=== PATIENT | male | born 1980 | race African-American/Black ===

== ENCOUNTER 2019-12-06 17:39 | Inpatient (IN) | payer SELFPAY ==
[~2019-12-06] VITALS: Ht 175.3 cm; Wt 87.2 kg
[2019-12-06] MEDS ORDERED: IV NORMAL SALINE 1000ML BAG 1,000 ML IV ONE ×4 (18:00→20:00)
[2019-12-06] MEDS ORDERED: ZIPRASIDONE IM 20 MG VIAL. IM ONE (18:00)
[2019-12-06] MEDS ORDERED: MIDAZOLAM HCL/PF 2 MG/2 ML VIAL. ONE (18:05)
[2019-12-06 18:08] LABS: BASO # 0.1 x10^3/uL (0.0-0.2); BASO % 1 % (0-3); EOS # 0.1 x10^3/uL (0.0-0.7); EOS % 1 % (0-3); HEMATOCRIT 43.9 % (39.0-53.0); HEMOGLOBIN 14.3 g/dL (13.0-17.5); LYMPH # 5.1 x10^3/uL (1.0-4.8); LYMPH % 46 % (24-48); MEAN CORPUSCULAR HEMOGLOBIN 29 pg (25-35); MEAN CORPUSCULAR HGB CONC 33 g/dL (31-37); MEAN CORPUSCULAR VOLUME 90 fL (79-100); MONO # 0.8 x10^3/uL (0.0-1.1); MONO % 8 % (0-9); NEUT % 45 % (31-73); PLATELET COUNT 402 x10^3/uL (140-400); RED BLOOD COUNT 4.89 x10^6/uL (4.30-5.70); RED CELL DISTRIBUTION WIDTH 13.2 % (11.5-14.5); WHITE BLOOD COUNT 11.2 x10^3/uL (4.0-11.0)
[2019-12-06 18:17] LABS: PROTHROMBIN TIME PATIENT 15.9 SEC (11.7-14.0)
--- NOTE | 2019-12-06 18:27 | RAD ---
Exam: CT head INDICATION: Altered mental status TECHNIQUE: Sequential axial images through the head were obtained without the administration of IV contrast. Comparisons: None FINDINGS: No focal parenchymal lesion or hemorrhage is identified. There is no midline shift or sulcal effacement. No acute vascular territory infarction is identified. Richards-white distinction is preserved. The ventricular system is within normal limits without compression hydrocephalus. The basal cisterns are well maintained. The visualized portions of the paranasal sinuses and mastoid air cells are well-pneumatized. No acute fractures. IMPRESSION: No acute intracranial abnormality. Exposure: One or more of the following in the visualized dose reduction techniques were utilized for this examination: 1. Automated exposure control 2. Adjustment of the MA and/or KV according to patient size Use of iterative of reconstructive technique Electronically signed by: Carolina Ding MD (12/06/2019 6:24 PM) [id number]
[2019-12-06] MEDS ORDERED: MIDAZOLAM HCL/PF 5 MG/5 ML VIAL. NS ONE ×2 (18:30→20:15)
[2019-12-06] MEDS ORDERED: ACETAMINOPHEN 650 MG SUPP.RECT. PR ONE (18:30)
[2019-12-06] MEDS ORDERED: KETOROLAC 30 MG/ML VIAL. IVP ONE (18:30)
--- NOTE | 2019-12-06 18:35 | RAD ---
Study: CR CHEST AP ONLY Indication: Altered mental status. Comparison: None. Findings: No lobar consolidation, pleural effusion or pneumothorax. The cardiomediastinal silhouette appears mildly prominent size but this is favored due to AP technique and low lung volumes. Degenerative changes of both AC joints. Grossly intact ribs. No free air seen under the diaphragm. Impression: No acute radiographic abnormality of the chest. Electronically signed by: ADELE HAN MD (12/06/2019 6:33 PM) [id number]
[2019-12-06 18:36] LABS: ACETAMIN < 2 mcg/ml (10-30); SALIC 4.1 mg/dL (2.8-20.0)
[2019-12-06 18:37] LABS: ETHANOL < 10 mg/dL (0-10)
[2019-12-06] MEDS ORDERED: MIDAZOLAM HCL/PF 2 MG/2 ML VIAL. IV ONE ×2 (19:00→20:15)
--- NOTE | 2019-12-06 19:17 | EKG ---
[facility] [address] [place] [address] Test Date: 2019-12-06 Test Time: 17:59:06 Pat Name: LUDIN RIVERA Department: Room: Gender: M Business Intelligence Manager: : 1980 Requested By: DEANNE DEXTER Order Number: [id number] Reading MD: Measurements Intervals [place] Rate: 135 P: UT: QRS: 91 QRSD: 70 T: 48 QT: 326 QTc: 494 Interpretive Statements SUPRAVENTRICULAR TACHYCARDIA RIGHTWARD AXIS QRS(T) CONTOUR ABNORMALITY CONSISTENT WITH ANTEROSEPTAL INFARCT AGE UNDETERMINED ABNORMAL ECG RI6.02 No previous ECG available for comparison
--- NOTE | 2019-12-06 19:48 | PHYS DOC ---
Past Medical History Past Medical History: No Pertinent History Past Surgical History: No Surgical History Smoking Status: Unknown if ever smoked Alcohol Use: None Social History Narrative: unknown General Adult EDM: Chief Complaint: DRUG ABUSE HPI: HPI: 39-year-old male no past medical history presents the ED brought in by EMS in police custody, was found wandering and acting erratic in the streets. Patient with incomprehensible speech and acutely agitated on arrival, was sedated for his medical evaluation and safety. EMS gave 250 mg of ketamine and 5 mg of Haldol. Patient required Geodon and Ativan on arrival. ROS: Unobtainable due to ams Heart Score: Risk Factors: Risk Factors: DM, Current or recent (<one month) smoker, HTN, HLP, family history of CAD, obesity. Risk Scores: Score 0 - 3: 2.5% MACE over next 6 weeks - Discharge Home Score 4 - 6: 20.3% MACE over next 6 weeks - Admit for Clinical Observation Score 7 - 10: 72.7% MACE over next 6 weeks - Early Invasive Strategies Current Medications: Current Medications Medications (Trade) Dose Ordered Sig/Jose E Start Time Stop Time Status Last Admin Dose Admin Acetaminophen (Tylenol Supp) 650 mg 1X ONCE 12/06/19 18:30 12/06/19 18:34 DC 12/06/19 18:32 650 MG Ketorolac Tromethamine (Toradol 30mg Vial) 30 mg 1X ONCE 12/06/19 18:30 12/06/19 18:28 DC Lorazepam (Ativan Inj) 2 mg 1X ONCE 12/06/19 19:00 12/06/19 19:01 DC 12/06/19 18:55 2 MG Midazolam HCl (Versed) 2 mg 1X ONCE 12/06/19 19:00 12/06/19 19:05 DC 12/06/19 18:59 2 MG Sodium Chloride 1,000 ml @ 1,000 mls/hr 1X ONCE 12/06/19 18:30 12/06/19 19:29 DC 12/06/19 18:29 1,000 MLS/HR Ziprasidone (Geodon Im) 20 mg 1X ONCE 12/06/19 18:00 12/06/19 18:01 DC 12/06/19 18:47 20 MG Allergies: Allergies: Allergies Coded Allergies Type Severity Reaction Last Updated Verified Unable to Assess 12/06/19 No Physical Exam: PE: Constitutional: Incomprehensible speech, agitated, unable to verbally de-es calate, diaphoretic HENT: Normocephalic, atraumatic, bilateral external ears normal, oropharynx moist, no oral exudates, nose normal. [] Eyes: PERRLA-miotic 1mm, EOMI, conjunctiva normal, no discharge. [] Neck: Normal range of motion, no tenderness, supple, no stridor. [] Cardiovascular:Heart rate regular rhythm, no murmur [] Lungs & Thorax: Bilateral breath sounds clear to auscultation [] Abdomen: Bowel sounds normal, soft, no tenderness, no masses, no pulsatile mas ses. [] Skin: Warm, dry, no erythema, no rash. [] Back: No tenderness, no CVA tenderness. [] Extremities: No tenderness, no cyanosis, no clubbing, ROM intact, no edema, no clonus, no leadpipe rigidity Neurologic: Alert and oriented X 3, normal motor function, normal sensory function, no focal deficits noted. [] Psychologic: Affect normal, judgement normal, mood normal. [] Current Patient Data: Labs: Laboratory Tests Test 12/06/19 17:58 White Blood Count 11.2 x10^3/uL (4.0-11.0) H Red Blood Count 4.89 x10^6/uL (4.30-5.70) Hemoglobin 14.3 g/dL (13.0-17.5) Hematocrit 43.9 % (39.0-53.0) Mean Corpuscular Volume 90 fL (79-100) Mean Corpuscular Hemoglobin 29 pg (25-35) Mean Corpuscular Hemoglobin Concent 33 g/dL (31-37) Red Cell Distribution Width 13.2 % (11.5-14.5) Platelet Count 402 x10^3/uL (140-400) H Neutrophils (%) (Auto) 45 % (31-73) Lymphocytes (%) (Auto) 46 % (24-48) Monocytes (%) (Auto) 8 % (0-9) Eosinophils (%) (Auto) 1 % (0-3) Basophils (%) (Auto) 1 % (0-3) Neutrophils # (Auto) 5.0 x10^3/uL (1.8-7.7) Lymphocytes # (Auto) 5.1 x10^3/uL (1.0-4.8) H Monocytes # (Auto) 0.8 x10^3/uL (0.0-1.1) Eosinophils # (Auto) 0.1 x10^3/uL (0.0-0.7) Basophils # (Auto) 0.1 x10^3/uL (0.0-0.2) Prothrombin Time 15.9 SEC (11.7-14.0) H Prothrombin Time INR 1.3 (0.8-1.1) H Activated Partial Thromboplast Time 26 SEC (24-38) Lactic Acid Level 21.5 mmol/L (0.4-2.0) *H Magnesium Level 2.6 mg/dL (1.8-2.4) H Ammonia 252 mcmol/L (11-34) H Creatine Kinase 1733 U/L (39-308) H Creatine Kinase MB (Mass) 9.7 ng/mL (0.0-3.6) H Creatine Kinase MB Relative Index 0.6 % (0-4) Troponin I Quantitative < 0.017 ng/mL (0.000-0.055) Salicylates Level 4.1 mg/dL (2.8-20.0) Salicylate Last Dose Date Unknown Salicylate Last Dose Time Unknown Acetaminophen Level < 2 mcg/ml (10-30) L Acetaminophen Last Dose Date Unknown Acetaminophen Last Dose Time Unknown Ethyl Alcohol Level < 10 mg/dL (0-10) Laboratory Tests 12/06/19 17:58 Vital Signs: Vital Signs Date Time Temp Pulse Resp B/P (MAP) Pulse Ox O2 Delivery O2 Flow Rate FiO2 12/06/19 18:50 124 36 101/69 (80) 93 Room Air 12/06/19 17:39 102.0 102.0 EKG: EKG: Concern for sinus tachycardia, possible multifocal atrial tachycardia at 135 bpm, no axis deviation, QTC 494, no T wave inversions, no ST elevations or ST depressions Radiology/Procedures: Radiology/Procedures: IMAGING REPORT Signed PATIENT: LUDIN RIVERA ACCOUNT: [id number] : 1980 LOCATION: ER AGE: 39 SEX: M EXAM STATUS: REG ER ORD. PHYSICIAN: DEANNE DEXTER DO REASON: altered mental status PROCEDURE: CT HEAD WO CONTRAST Exam: CT head INDICATION: Altered mental status TECHNIQUE: Sequential axial images through the head were obtained without the administration of IV contrast. Comparisons: None FINDINGS: No focal parenchymal lesion or hemorrhage is identified. There is no midline shift or sulcal effacement. No acute vascular territory infarction is identified. Richards-white distinction is preserved. The ventricular system is within normal limits without compression hydrocephalus. The basal cisterns are well maintained. The visualized portions of the paranasal sinuses and mastoid air cells are well-pneumatized. No acute fractures. IMPRESSION: No acute intracranial abnormality. Exposure: One or more of the following in the visualized dose reduction techniques were utilized for this examination: 1. Automated exposure control 2. Adjustment of the MA and/or KV according to patient size Use of iterative of reconstructive technique Electronically signed by: Carolina Knight MD (12/06/2019 6:24 PM) [id number] DICTATED and SIGNED BY: CAROLINA KNIGHT MD DATE: 12/06/191823 IMAGING REPORT Signed PATIENT: LUDIN RIVERA ACCOUNT: [id number] : 1980 LOCATION: ER AGE: 39 SEX: M EXAM STATUS: REG ER ORD. PHYSICIAN: DEANNE DEXTER DO REASON: altered mental status PROCEDURE: CHEST AP ONLY Study: CR CHEST AP ONLY Indication: Altered mental status. Comparison: None. Findings: No lobar consolidation, pleural effusion or pneumothorax. The cardiomediastinal silhouette appears mildly prominent size but this is favored due to AP technique and low lung volumes. Degenerative changes of both AC joints. Grossly intact ribs. No free air seen under the diaphragm. Impression: No acute radiographic abnormality of the chest. Electronically signed by: ADELE HAN MD (12/06/2019 6:33 PM) [id number] DICTATED and SIGNED BY: ADELE HAN MD DATE: 12/06/19 183 Course & Med Decision Making: Course & Med Decision Making Pertinent Labs and Imaging studies reviewed. (See chart for details) Concern for acute agitation/delirium secondary to polysubstance abuse, most notable is PCP which fits with patient's ER presentation. Required multiple sedations for his safety and evaluation. Labs showed lactic acidosis, rhabdomyolysis and acute kidney injury. Lactic acidosis resolved. Kidney injury improved and CK increased. after patient was given 3 L bolus and started on maintenance fluids. On re-evaluation pt admits to PCP, is A&Ox3 w/[facility]. Denies any suicidal thoughts, plan or homicidal ideations or plan. Was educated on concern for rhabdomyolysis with CK increasing. Agrees with plan for admission, IV fluids and repeat labs. Will admit for further medical management. Patient stable at time of admission and agrees with this plan. I have spoken with the patient and/or caregivers. I have explained the patient's condition, diagnosis and treatment plan based on the information avail able to me at this time. I have answered the patient's and/or caregivers questions and answered any concerns. The patient and/or caregivers have as good an understanding of the patient's diagnosis, condition and treatment plan as can be expected at this point. The patient has been stabilized within the capability of the emergency department. The patient will be transported for further care and management or will be moved to an observation or inpatient service. I have communicated with the staff or medical practitioner taking over this patient's care. Geoffrey Disclaimer: Dragmono Disclaimer: This electronic medical record was generated, in whole or in part, using a voice recognition dictation system. Departure Departure Impression: Primary Impression: Agitation requiring sedation protocol Additional Impressions: Rhabdomyolysis Elevated lactic acid level PCP (phencyclidine) abuse Polysubstance abuse Renal insufficiency Disposition: ADMITTED INPATIENT Admitting Physician: TREVOR (Dr. Hubbard) Condition: STABLE Referrals: NO PCP (PCP) Patient Instructions: Acute Kidney Injury, Polysubstance Abuse, Rhabdomyolysis, Sedation, Moderate, Adult Additional Instructions: Sergei Tony MD Family Medicine Address: [address] [place] [id number] Justicifation of Admission Dx: Justifications for Admission: Justification of Admission Dx: Yes Comments: rhabdomyolysis MARIA G LI DO Dec 06, 2019 19:48
[2019-12-06] MEDS ORDERED: HALOPERIDOL LACTATE 5 MG/ML VIAL. ONE (19:54)
[2019-12-06 20:05] LABS: BILIRUBIN,URINE NEGATIVE (NEG); CLARITY,URINE CLEAR; COLOR,URINE YELLOW; NITRITE,URINE NEGATIVE (NEG); PH,URINE 6.5 (<5.0-8.0); PROTEIN,URINE 100 mg/dL (NEG-TRACE)
[2019-12-06 20:11] LABS: HYALINE CASTS, URINE FEW /HPF
[2019-12-06 20:12] LABS: AMORPHOUS SEDIMENT,UR PRESENT /HPF; BACTERIA,URINE 0 /HPF (0-FEW)
[2019-12-06 20:13] LABS: BARBITURATES NEG (NEG); BENZODIAZEPINES POS (NEG); CANNABINOIDS POS (NEG); COCAINE NEG (NEG); METHADONE NEG (NEG); OPIATES NEG (NEG); PHENCYCLIDINE POS (NEG)
[2019-12-06 20:15] LABS: AMPHETAMINE/METHAMPHETAMINE POS (NEG)
[2019-12-06] MEDS ORDERED: HALOPERIDOL LACTATE 5 MG/ML VIAL. IVP ONE (20:15)
[2019-12-06 20:28] LABS: ALBUMIN 4.5 g/dL (3.4-5.0); ALBUMIN/GLOBULIN RATIO 1.2 (1.0-1.7); CALCIUM 9.9 mg/dL (8.5-10.1); CREATININE 1.9 mg/dL (0.7-1.3); GFR 47.7; POTASSIUM 3.9 mmol/L (3.5-5.1); TOTAL BILIRUBIN 0.8 mg/dL (0.2-1.0); TOTAL PROTEIN 8.3 g/dL (6.4-8.2)
[2019-12-06] MEDS ORDERED: KETAMINE HCL IN NACL, ISO-OSM 50 MG/5 ML SYRINGE ONE (20:50)
[2019-12-06] MEDS ORDERED: KETAMINE HCL IN NACL, ISO-OSM 50 MG/5 ML SYRINGE IV ONE (21:00)
[2019-12-06] MEDS ORDERED: DIPH,PERTUSS(ACELL),TET VAC/PF 0.5 ML SYRINGE. VAX IM ONE (21:30)
[2019-12-07 00:54] LABS: CALCIUM 7.5 mg/dL (8.5-10.1); CREATININE 1.3 mg/dL (0.7-1.3); POTASSIUM 3.7 mmol/L (3.5-5.1)
[2019-12-07] MEDS ORDERED: IV NORMAL SALINE 1000ML BAG 1,000 ML IV SCH (02:30)
[2019-12-07 03:41] VITALS: BP 119/77
--- NOTE | 2019-12-07 04:05 | NUR ---
The patient, LUDIN RIVERA, 39 y/o, M admitted by JAYESH LANDEROS MD, was given written information regarding hospital policies, unit procedures and contact persons. Valuables were checked and placed in bedside table. No needs currently. Pt. just wants to rest. Will monitor.
[2019-12-07] MEDS ORDERED: [UNRECOGNIZED DRUG - REMARK] (04:38)
--- NOTE | 2019-12-07 07:46 | NUR ---
pt had been walking on unit with IV pole. was instructed not to leave unit. when RN came out of another pt room, Mr. Messer was no longer on unit. IV pole found in front of litigation legal secretary's desk. pt had unhooked from his arm. Security called and staff was informed that pt had told screener at south entrance he could go outside to get some fresh air. this was not accurate. security called floor to get pt address as law enforcement was to be called to pick patient up at home.
--- NOTE | 2019-12-07 07:58 | PDOC1 ---
History and Physical Date of Admission Date of Admission DATE: 12/07/19 TIME: 07:46 Identification/Chief Complaint Chief Complaint Drug abuse Source Source: Chart review History of Present Illness History of Present Illness Patient is a 39-year-old male with no significant past medical history who presents to the ER via EMS in police custody after being found acting erratically. Per chart review, patient was acting agitated and required multiple rounds of sedation safety and examination purposes. Per ER personnel, patient's urine drug toxicology showed evidence of polysubstance abuse. Serum chemistry showed rhabdomyolysis and lactic acidosis. Further history and review of systems cannot be obtained as patient left AMA prior to my evaluation. Past Medical History Past Medical History Unable to obtain due to uncooperative patient Past Surgical History Past Surgical History Unable to obtain due to uncooperative patient Family History Family History Unable to obtain due to uncooperative patient Current Problem List Problem List Problems Medical Problems: (1) Agitation requiring sedation protocol Status: Acute (2) Elevated lactic acid level Status: Acute (3) PCP (phencyclidine) abuse Status: Acute (4) Polysubstance abuse Status: Acute (5) Renal insufficiency Status: Acute (6) Rhabdomyolysis Status: Acute Current Medications Current Medications Current Medications Ziprasidone (Geodon Im) 20 mg 1X ONCE IM Last administered on 12/06/19at 18:47; Start 12/06/19 at 18:00; Stop 12/06/19 at 18:01; Status DC Lorazepam (Ativan Inj) 2 mg 1X ONCE IVP ; Start 12/06/19 at 18:00; Stop 12/06/19 at 18:01; Status DC Sodium Chloride 1,000 ml @ 1,000 mls/hr 1X ONCE IV Last administered on 12/06/19at 18:28; Start 12/06/19 at 18:00; Stop 12/06/19 at 18:59; Status DC Midazolam HCl (Versed) 2 mg STK-MED ONCE .ROUTE ; Start 12/06/19 at 18:05; Stop 12/06/19 at 18:06; Status DC Midazolam HCl (Versed) 2 mg 1X ONCE NS ; Start 12/06/19 at 18:30; Stop 12/06/19 at 18:59; Status DC Ketorolac Tromethamine (Toradol 30mg Vial) 30 mg 1X ONCE IVP ; Start 12/06/19 at 18:30; Stop 12/06/19 at 18:28; Status DC Sodium Chloride 1,000 ml @ 1,000 mls/hr 1X ONCE IV Last administered on 12/06/19at 18:29; Start 12/06/19 at 18:30; Stop 12/06/19 at 19:29; Status DC Acetaminophen (Tylenol Supp) [address] Last administered on 12/06/19at 18:32; Start 12/06/19 at 18:30; Stop 12/06/19 at 18:34; Status DC Lorazepam (Ativan Inj) 2 mg 1X ONCE IM Last administered on 12/06/19at 18:55; Start 12/06/19 at 19:00; Stop 12/06/19 at 19:01; Status DC Midazolam HCl (Versed) 2 mg 1X ONCE IV Last administered on 12/06/19at 18:59; Start 12/06/19 at 19:00; Stop 12/06/19 at 19:05; Status DC Sodium Chloride 1,000 ml @ 1,000 mls/hr 1X ONCE IV Last administered on 12/06/19at 20:00; Start 12/06/19 at 20:00; Stop 12/06/19 at 20:59; Status DC Sodium Chloride 1,000 ml @ 125 mls/hr 1X ONCE IV Last administered on 12/06/19at 20:43; Start 12/06/19 at 20:00; Stop 12/07/19 at 03:59; Status DC Haloperidol Lactate (Haldol Inj) 5 mg STK-MED ONCE .ROUTE ; Start 12/06/19 at 19:54; Stop 12/06/19 at 19:54; Status DC Haloperidol Lactate (Haldol Inj) 5 mg 1X ONCE IVP Last administered on 12/06/19at 20:05; Start 12/06/19 at 20:15; Stop 12/06/19 at 20:16; Status DC Midazolam HCl (Versed) 4 mg 1X ONCE NS ; Start 12/06/19 at 20:15; Stop 12/06/19 at 20:16; Status Cancel Midazolam HCl (Versed) 4 mg 1X ONCE IV Last administered on 12/06/19at 20:09; Start 12/06/19 at 20:15; Stop 12/06/19 at 20:16; Status DC Ketamine HCl (Ketamine) 90 mg 1X ONCE IV ; Start 12/06/19 at 21:00; Stop 12/06/19 at 21:01; Status DC Ketamine HCl (Ketamine) 50 mg STK-MED ONCE .ROUTE ; Start 12/06/19 at 20:50; Stop 12/06/19 at 20:50; Status DC Diphtheria/ Tetanus/Acell Pertussis (ADACEL TDap SYRINGE) 0.5 ml ONCE ONCE VAX IM Last administered on 12/07/19at 01:23; Start 12/06/19 at 21:30; Stop 12/06/19 at 21:31; Status DC Sodium Chloride 1,000 ml @ 100 mls/hr Q10H IV Last administered on 12/07/19at 04:15; Start 12/07/19 at 02:30; Stop 12/08/19 at 02:29 Active Scripts Active Reported [{no home meds}] Allergies Allergies: Coded Allergies: Sulfa (Sulfonamide Antibiotics) (Verified Allergy, Intermediate, 12/07/19) ROS Review of System Unable to obtain due to uncooperative patient Physical Exam Physical Exam Unable to obtain due to uncooperative patient Vitals Vitals Vital Signs Date Time Temp Pulse Resp B/P (MAP) Pulse Ox O2 Delivery O2 Flow Rate FiO2 12/07/19 04:30 Room Air 12/07/19 03:41 84 16 119/77 (91) 99 12/07/19 01:31 98.1 98.1 Labs Labs Laboratory Tests Test 12/06/19 17:41 12/06/19 17:58 12/06/19 19:56 12/06/19 21:40 Sodium Level 141 mmol/L (136-145) Potassium Level 3.9 mmol/L (3.5-5.1) Chloride Level 96 mmol/L (98-107) Carbon Dioxide Level 7 mmol/L (21-32) Anion Gap 38 (6-14) Blood Urea Nitrogen 11 mg/dL (8-26) Creatinine 1.9 mg/dL (0.7-1.3) Estimated GFR (Cockcroft-Gault) 47.7 BUN/Creatinine Ratio 6 (6-20) Glucose Level 228 mg/dL (70-99) Calcium Level 9.9 mg/dL (8.5-10.1) Total Bilirubin 0.8 mg/dL (0.2-1.0) Aspartate Amino Transf (AST/SGOT) 38 U/L (15-37) Alanine Aminotransferase (ALT/SGPT) 44 U/L (16-63) Alkaline Phosphatase 84 U/L (46-116) Total Protein 8.3 g/dL (6.4-8.2) Albumin 4.5 g/dL (3.4-5.0) Albumin/Globulin Ratio 1.2 (1.0-1.7) White Blood Count 11.2 x10^3/uL (4.0-11.0) Red Blood Count 4.89 x10^6/uL (4.30-5.70) Hemoglobin 14.3 g/dL (13.0-17.5) Hematocrit 43.9 % (39.0-53.0) Mean Corpuscular Volume 90 fL (79-100) Mean Corpuscular Hemoglobin 29 pg (25-35) Mean Corpuscular Hemoglobin Concent 33 g/dL (31-37) Red Cell Distribution Width 13.2 % (11.5-14.5) Platelet Count 402 x10^3/uL (140-400) Neutrophils (%) (Auto) 45 % (31-73) Lymphocytes (%) (Auto) 46 % (24-48) Monocytes (%) (Auto) 8 % (0-9) Eosinophils (%) (Auto) 1 % (0-3) Basophils (%) (Auto) 1 % (0-3) Neutrophils # (Auto) 5.0 x10^3/uL (1.8-7.7) Lymphocytes # (Auto) 5.1 x10^3/uL (1.0-4.8) Monocytes # (Auto) 0.8 x10^3/uL (0.0-1.1) Eosinophils # (Auto) 0.1 x10^3/uL (0.0-0.7) Basophils # (Auto) 0.1 x10^3/uL (0.0-0.2) Prothrombin Time 15.9 SEC (11.7-14.0) Prothromb Time International Ratio 1.3 (0.8-1.1) Activated Partial Thromboplast Time 26 SEC (24-38) Lactic Acid Level 21.5 mmol/L (0.4-2.0) 0.9 mmol/L (0.4-2.0) Magnesium Level 2.6 mg/dL (1.8-2.4) Ammonia 252 mcmol/L (11-34) Creatine Kinase 1733 U/L (39-308) Creatine Kinase MB (Mass) 9.7 ng/mL (0.0-3.6) Creatine Kinase MB Relative Index 0.6 % (0-4) Troponin I Quantitative < 0.017 ng/mL (0.000-0.055) Salicylates Level 4.1 mg/dL (2.8-20.0) Salicylate Last Dose Date Unknown Salicylate Last Dose Time Unknown Acetaminophen Level < 2 mcg/ml (10-30) Acetaminophen Last Dose Date Unknown Acetaminophen Last Dose Time Unknown Ethyl Alcohol Level < 10 mg/dL (0-10) Urine Collection Type Unknown Urine Color Yellow Urine Clarity Clear Urine pH 6.5 (<5.0-8.0) Urine Specific [place] 1.015 (1.000-1.030) Urine Protein 100 mg/dL (NEG-TRACE) Urine Glucose (UA) Negative mg/dL (NEG) Urine Ketones (Stick) 15 mg/dL (NEG) Urine Blood Negative (NEG) Urine Nitrite Negative (NEG) Urine Bilirubin Negative (NEG) Urine Urobilinogen Dipstick 1.0 mg/dL (0.2 mg/dL) Urine Leukocyte Esterase Negative (NEG) Urine RBC 6-10 /HPF (0-2) Urine WBC 1-4 /HPF (0-4) Urine Transitional Epithelial Cells Few /LPF Urine Amorphous Sediment Present /HPF Urine Bacteria 0 /HPF (0-FEW) Urine Hyaline Casts Few /HPF Urine Mucus Mod /LPF Urine Opiates Screen Neg (NEG) Urine Methadone Screen Neg (NEG) Urine Barbiturates Neg (NEG) Urine Phencyclidine Screen Pos (NEG) Urine Amphetamine/Methamphetamine Pos (NEG) Urine Benzodiazepines Screen Pos (NEG) Urine Cocaine Screen Neg (NEG) Urine Cannabinoids Screen Pos (NEG) Urine Ethyl Alcohol Neg (NEG) Test 12/07/19 00:35 Sodium Level 140 mmol/L (136-145) Potassium Level 3.7 mmol/L (3.5-5.1) Chloride Level 107 mmol/L (98-107) Carbon Dioxide Level 28 mmol/L (21-32) Anion Gap 5 (6-14) Blood Urea Nitrogen 10 mg/dL (8-26) Creatinine 1.3 mg/dL (0.7-1.3) Estimated GFR (Cockcroft-Gault) 74.0 Glucose Level 78 mg/dL (70-99) Calcium Level 7.5 mg/dL (8.5-10.1) Creatine Kinase 4983 U/L (39-308) Laboratory Tests Test 12/06/19 17:41 12/06/19 17:58 12/06/19 19:56 12/06/19 21:40 Sodium Level 141 mmol/L (136-145) Potassium Level 3.9 mmol/L (3.5-5.1) Chloride Level 96 mmol/L (98-107) Carbon Dioxide Level 7 mmol/L (21-32) Anion Gap 38 (6-14) Blood Urea Nitrogen 11 mg/dL (8-26) Creatinine 1.9 mg/dL (0.7-1.3) Estimated GFR (Cockcroft-Gault) 47.7 BUN/Creatinine Ratio 6 (6-20) Glucose Level 228 mg/dL (70-99) Calcium Level 9.9 mg/dL (8.5-10.1) Total Bilirubin 0.8 mg/dL (0.2-1.0) Aspartate Amino Transf (AST/SGOT) 38 U/L (15-37) Alanine Aminotransferase (ALT/SGPT) 44 U/L (16-63) Alkaline Phosphatase 84 U/L (46-116) Total Protein 8.3 g/dL (6.4-8.2) Albumin 4.5 g/dL (3.4-5.0) Albumin/Globulin Ratio 1.2 (1.0-1.7) White Blood Count 11.2 x10^3/uL (4.0-11.0) Red Blood Count 4.89 x10^6/uL (4.30-5.70) Hemoglobin 14.3 g/dL (13.0-17.5) Hematocrit 43.9 % (39.0-53.0) Mean Corpuscular Volume 90 fL (79-100) Mean Corpuscular Hemoglobin 29 pg (25-35) Mean Corpuscular Hemoglobin Concent 33 g/dL (31-37) Red Cell Distribution Width 13.2 % (11.5-14.5) Platelet Count 402 x10^3/uL (140-400) Neutrophils (%) (Auto) 45 % (31-73) Lymphocytes (%) (Auto) 46 % (24-48) Monocytes (%) (Auto) 8 % (0-9) Eosinophils (%) (Auto) 1 % (0-3) Basophils (%) (Auto) 1 % (0-3) Neutrophils # (Auto) 5.0 x10^3/uL (1.8-7.7) Lymphocytes # (Auto) 5.1 x10^3/uL (1.0-4.8) Monocytes # (Auto) 0.8 x10^3/uL (0.0-1.1) Eosinophils # (Auto) 0.1 x10^3/uL (0.0-0.7) Basophils # (Auto) 0.1 x10^3/uL (0.0-0.2) Prothrombin Time 15.9 SEC (11.7-14.0) Prothromb Time International Ratio 1.3 (0.8-1.1) Activated Partial Thromboplast Time 26 SEC (24-38) Lactic Acid Level 21.5 mmol/L (0.4-2.0) 0.9 mmol/L (0.4-2.0) Magnesium Level 2.6 mg/dL (1.8-2.4) Ammonia 252 mcmol/L (11-34) Creatine Kinase 1733 U/L (39-308) Creatine Kinase MB (Mass) 9.7 ng/mL (0.0-3.6) Creatine Kinase MB Relative Index 0.6 % (0-4) Troponin I Quantitative < 0.017 ng/mL (0.000-0.055) Salicylates Level 4.1 mg/dL (2.8-20.0) Salicylate Last Dose Date Unknown Salicylate Last Dose Time Unknown Acetaminophen Level < 2 mcg/ml (10-30) Acetaminophen Last Dose Date Unknown Acetaminophen Last Dose Time Unknown Ethyl Alcohol Level < 10 mg/dL (0-10) Urine Collection Type Unknown Urine Color Yellow Urine Clarity Clear Urine pH 6.5 (<5.0-8.0) Urine Specific [place] 1.015 (1.000-1.030) Urine Protein 100 mg/dL (NEG-TRACE) Urine Glucose (UA) Negative mg/dL (NEG) Urine Ketones (Stick) 15 mg/dL (NEG) Urine Blood Negative (NEG) Urine Nitrite Negative (NEG) Urine Bilirubin Negative (NEG) Urine Urobilinogen Dipstick 1.0 mg/dL (0.2 mg/dL) Urine Leukocyte Esterase Negative (NEG) Urine RBC 6-10 /HPF (0-2) Urine WBC 1-4 /HPF (0-4) Urine Transitional Epithelial Cells Few /LPF Urine Amorphous Sediment Present /HPF Urine Bacteria 0 /HPF (0-FEW) Urine Hyaline Casts Few /HPF Urine Mucus Mod /LPF Urine Opiates Screen Neg (NEG) Urine Methadone Screen Neg (NEG) Urine Barbiturates Neg (NEG) Urine Phencyclidine Screen Pos (NEG) Urine Amphetamine/Methamphetamine Pos (NEG) Urine Benzodiazepines Screen Pos (NEG) Urine Cocaine Screen Neg (NEG) Urine Cannabinoids Screen Pos (NEG) Urine Ethyl Alcohol Neg (NEG) Test 12/07/19 00:35 Sodium Level 140 mmol/L (136-145) Potassium Level 3.7 mmol/L (3.5-5.1) Chloride Level 107 mmol/L (98-107) Carbon Dioxide Level 28 mmol/L (21-32) Anion Gap 5 (6-14) Blood Urea Nitrogen 10 mg/dL (8-26) Creatinine 1.3 mg/dL (0.7-1.3) Estimated GFR (Cockcroft-Gault) 74.0 Glucose Level 78 mg/dL (70-99) Calcium Level 7.5 mg/dL (8.5-10.1) Creatine Kinase 4983 U/L (39-308) VTE Prophylaxis Ordered VTE Prophylaxis Devices: Yes VTE Pharmacological Prophylaxi: No Assessment/Plan Assessment/Plan Polysubstance Drug abuse Lactic acidosis Rhabdomyolysis Plan: Per patient's nurse, patient left AMA this morning with IV access still in place. Due to his known history of drug abuse recommended security contact police. Justifications for Admission Other Justification JAYESH LANDEROS MD Dec 07, 2019 07:58
--- NOTE | 2019-12-07 08:04 | PDOC3 ---
Discharge Summary Visit Information Date of Admission: Dec 07, 2019 Date of Discharge: Dec 07, 2019 Final Diagnosis Problems Medical Problems: (1) Agitation requiring sedation protocol Status: Acute (2) Elevated lactic acid level Status: Acute (3) PCP (phencyclidine) abuse Status: Acute (4) Polysubstance abuse Status: Acute (5) Renal insufficiency Status: Acute (6) Rhabdomyolysis Status: Acute Brief Hospital Course Allergies Allergies Coded Allergies Type Severity Reaction Last Updated Verified Sulfa (Sulfonamide Antibiotics) Allergy Intermediate 12/07/19 Yes Vital Signs Vital Signs Date Time Temp Pulse Resp B/P (MAP) Pulse Ox O2 Delivery O2 Flow Rate FiO2 12/07/19 04:30 Room Air 12/07/19 03:41 84 16 119/77 (91) 99 12/07/19 01:31 98.1 98.1 Lab Results Laboratory Tests Test 12/06/19 17:41 12/06/19 17:58 12/06/19 19:56 12/06/19 21:40 Sodium Level 141 mmol/L (136-145) Potassium Level 3.9 mmol/L (3.5-5.1) Chloride Level 96 mmol/L (98-107) Carbon Dioxide Level 7 mmol/L (21-32) Anion Gap 38 (6-14) Blood Urea Nitrogen 11 mg/dL (8-26) Creatinine 1.9 mg/dL (0.7-1.3) Estimated GFR (Cockcroft-Gault) 47.7 BUN/Creatinine Ratio 6 (6-20) Glucose Level 228 mg/dL (70-99) Calcium Level 9.9 mg/dL (8.5-10.1) Total Bilirubin 0.8 mg/dL (0.2-1.0) Aspartate Amino Transf (AST/SGOT) 38 U/L (15-37) Alanine Aminotransferase (ALT/SGPT) 44 U/L (16-63) Alkaline Phosphatase 84 U/L (46-116) Total Protein 8.3 g/dL (6.4-8.2) Albumin 4.5 g/dL (3.4-5.0) Albumin/Globulin Ratio 1.2 (1.0-1.7) White Blood Count 11.2 x10^3/uL (4.0-11.0) Red Blood Count 4.89 x10^6/uL (4.30-5.70) Hemoglobin 14.3 g/dL (13.0-17.5) Hematocrit 43.9 % (39.0-53.0) Mean Corpuscular Volume 90 fL (79-100) Mean Corpuscular Hemoglobin 29 pg (25-35) Mean Corpuscular Hemoglobin Concent 33 g/dL (31-37) Red Cell Distribution Width 13.2 % (11.5-14.5) Platelet Count 402 x10^3/uL (140-400) Neutrophils (%) (Auto) 45 % (31-73) Lymphocytes (%) (Auto) 46 % (24-48) Monocytes (%) (Auto) 8 % (0-9) Eosinophils (%) (Auto) 1 % (0-3) Basophils (%) (Auto) 1 % (0-3) Neutrophils # (Auto) 5.0 x10^3/uL (1.8-7.7) Lymphocytes # (Auto) 5.1 x10^3/uL (1.0-4.8) Monocytes # (Auto) 0.8 x10^3/uL (0.0-1.1) Eosinophils # (Auto) 0.1 x10^3/uL (0.0-0.7) Basophils # (Auto) 0.1 x10^3/uL (0.0-0.2) Prothrombin Time 15.9 SEC (11.7-14.0) Prothromb Time International Ratio 1.3 (0.8-1.1) Activated Partial Thromboplast Time 26 SEC (24-38) Lactic Acid Level 21.5 mmol/L (0.4-2.0) 0.9 mmol/L (0.4-2.0) Magnesium Level 2.6 mg/dL (1.8-2.4) Ammonia 252 mcmol/L (11-34) Creatine Kinase 1733 U/L (39-308) Creatine Kinase MB (Mass) 9.7 ng/mL (0.0-3.6) Creatine Kinase MB Relative Index 0.6 % (0-4) Troponin I Quantitative < 0.017 ng/mL (0.000-0.055) Salicylates Level 4.1 mg/dL (2.8-20.0) Salicylate Last Dose Date Unknown Salicylate Last Dose Time Unknown Acetaminophen Level < 2 mcg/ml (10-30) Acetaminophen Last Dose Date Unknown Acetaminophen Last Dose Time Unknown Ethyl Alcohol Level < 10 mg/dL (0-10) Urine Collection Type Unknown Urine Color Yellow Urine Clarity Clear Urine pH 6.5 (<5.0-8.0) Urine Specific [place] 1.015 (1.000-1.030) Urine Protein 100 mg/dL (NEG-TRACE) Urine Glucose (UA) Negative mg/dL (NEG) Urine Ketones (Stick) 15 mg/dL (NEG) Urine Blood Negative (NEG) Urine Nitrite Negative (NEG) Urine Bilirubin Negative (NEG) Urine Urobilinogen Dipstick 1.0 mg/dL (0.2 mg/dL) Urine Leukocyte Esterase Negative (NEG) Urine RBC 6-10 /HPF (0-2) Urine WBC 1-4 /HPF (0-4) Urine Transitional Epithelial Cells Few /LPF Urine Amorphous Sediment Present /HPF Urine Bacteria 0 /HPF (0-FEW) Urine Hyaline Casts Few /HPF Urine Mucus Mod /LPF Urine Opiates Screen Neg (NEG) Urine Methadone Screen Neg (NEG) Urine Barbiturates Neg (NEG) Urine Phencyclidine Screen Pos (NEG) Urine Amphetamine/Methamphetamine Pos (NEG) Urine Benzodiazepines Screen Pos (NEG) Urine Cocaine Screen Neg (NEG) Urine Cannabinoids Screen Pos (NEG) Urine Ethyl Alcohol Neg (NEG) Test 12/07/19 00:35 Sodium Level 140 mmol/L (136-145) Potassium Level 3.7 mmol/L (3.5-5.1) Chloride Level 107 mmol/L (98-107) Carbon Dioxide Level 28 mmol/L (21-32) Anion Gap 5 (6-14) Blood Urea Nitrogen 10 mg/dL (8-26) Creatinine 1.3 mg/dL (0.7-1.3) Estimated GFR (Cockcroft-Gault) 74.0 Glucose Level 78 mg/dL (70-99) Calcium Level 7.5 mg/dL (8.5-10.1) Creatine Kinase 4983 U/L (39-308) Laboratory Tests Test 12/06/19 17:41 12/06/19 17:58 12/06/19 19:56 12/06/19 21:40 Sodium Level 141 mmol/L (136-145) Potassium Level 3.9 mmol/L (3.5-5.1) Chloride Level 96 mmol/L (98-107) Carbon Dioxide Level 7 mmol/L (21-32) Anion Gap 38 (6-14) Blood Urea Nitrogen 11 mg/dL (8-26) Creatinine 1.9 mg/dL (0.7-1.3) Estimated GFR (Cockcroft-Gault) 47.7 BUN/Creatinine Ratio 6 (6-20) Glucose Level 228 mg/dL (70-99) Calcium Level 9.9 mg/dL (8.5-10.1) Total Bilirubin 0.8 mg/dL (0.2-1.0) Aspartate Amino Transf (AST/SGOT) 38 U/L (15-37) Alanine Aminotransferase (ALT/SGPT) 44 U/L (16-63) Alkaline Phosphatase 84 U/L (46-116) Total Protein 8.3 g/dL (6.4-8.2) Albumin 4.5 g/dL (3.4-5.0) Albumin/Globulin Ratio 1.2 (1.0-1.7) White Blood Count 11.2 x10^3/uL (4.0-11.0) Red Blood Count 4.89 x10^6/uL (4.30-5.70) Hemoglobin 14.3 g/dL (13.0-17.5) Hematocrit 43.9 % (39.0-53.0) Mean Corpuscular Volume 90 fL (79-100) Mean Corpuscular Hemoglobin 29 pg (25-35) Mean Corpuscular Hemoglobin Concent 33 g/dL (31-37) Red Cell Distribution Width 13.2 % (11.5-14.5) Platelet Count 402 x10^3/uL (140-400) Neutrophils (%) (Auto) 45 % (31-73) Lymphocytes (%) (Auto) 46 % (24-48) Monocytes (%) (Auto) 8 % (0-9) Eosinophils (%) (Auto) 1 % (0-3) Basophils (%) (Auto) 1 % (0-3) Neutrophils # (Auto) 5.0 x10^3/uL (1.8-7.7) Lymphocytes # (Auto) 5.1 x10^3/uL (1.0-4.8) Monocytes # (Auto) 0.8 x10^3/uL (0.0-1.1) Eosinophils # (Auto) 0.1 x10^3/uL (0.0-0.7) Basophils # (Auto) 0.1 x10^3/uL (0.0-0.2) Prothrombin Time 15.9 SEC (11.7-14.0) Prothromb Time International Ratio 1.3 (0.8-1.1) Activated Partial Thromboplast Time 26 SEC (24-38) Lactic Acid Level 21.5 mmol/L (0.4-2.0) 0.9 mmol/L (0.4-2.0) Magnesium Level 2.6 mg/dL (1.8-2.4) Ammonia 252 mcmol/L (11-34) Creatine Kinase 1733 U/L (39-308) Creatine Kinase MB (Mass) 9.7 ng/mL (0.0-3.6) Creatine Kinase MB Relative Index 0.6 % (0-4) Troponin I Quantitative < 0.017 ng/mL (0.000-0.055) Salicylates Level 4.1 mg/dL (2.8-20.0) Salicylate Last Dose Date Unknown Salicylate Last Dose Time Unknown Acetaminophen Level < 2 mcg/ml (10-30) Acetaminophen Last Dose Date Unknown Acetaminophen Last Dose Time Unknown Ethyl Alcohol Level < 10 mg/dL (0-10) Urine Collection Type Unknown Urine Color Yellow Urine Clarity Clear Urine pH 6.5 (<5.0-8.0) Urine Specific [place] 1.015 (1.000-1.030) Urine Protein 100 mg/dL (NEG-TRACE) Urine Glucose (UA) Negative mg/dL (NEG) Urine Ketones (Stick) 15 mg/dL (NEG) Urine Blood Negative (NEG) Urine Nitrite Negative (NEG) Urine Bilirubin Negative (NEG) Urine Urobilinogen Dipstick 1.0 mg/dL (0.2 mg/dL) Urine Leukocyte Esterase Negative (NEG) Urine RBC 6-10 /HPF (0-2) Urine WBC 1-4 /HPF (0-4) Urine Transitional Epithelial Cells Few /LPF Urine Amorphous Sediment Present /HPF Urine Bacteria 0 /HPF (0-FEW) Urine Hyaline Casts Few /HPF Urine Mucus Mod /LPF Urine Opiates Screen Neg (NEG) Urine Methadone Screen Neg (NEG) Urine Barbiturates Neg (NEG) Urine Phencyclidine Screen Pos (NEG) Urine Amphetamine/Methamphetamine Pos (NEG) Urine Benzodiazepines Screen Pos (NEG) Urine Cocaine Screen Neg (NEG) Urine Cannabinoids Screen Pos (NEG) Urine Ethyl Alcohol Neg (NEG) Test 12/07/19 00:35 Sodium Level 140 mmol/L (136-145) Potassium Level 3.7 mmol/L (3.5-5.1) Chloride Level 107 mmol/L (98-107) Carbon Dioxide Level 28 mmol/L (21-32) Anion Gap 5 (6-14) Blood Urea Nitrogen 10 mg/dL (8-26) Creatinine 1.3 mg/dL (0.7-1.3) Estimated GFR (Cockcroft-Gault) 74.0 Glucose Level 78 mg/dL (70-99) Calcium Level 7.5 mg/dL (8.5-10.1) Creatine Kinase 4983 U/L (39-308) Brief Hospital Course Mr. Messer is a 39 old male who presented with polysubstance abuse, rhabdomyolysis, lactic acidosis.Per ER personnel, patient's urine drug toxicology showed evidence of polysubstance abuse. Further history and review of systems cannot be obtained as patient left AMA prior to my evaluation. Discharge Information Disposition/Orders: Other (Patient left AMA) Miscellaneous Medications [{no home meds}] , (Reported) Entered as Reported by: HANNAH DODGE on 12/07/19437 Last Action: New Order on 12/07/19437 by HANNAH DODGE Justicifation of Admission Dx: Justifications for Admission: Justification of Admission Dx: Yes JAYESH LANDEROS MD Dec 07, 2019 08:04
== END 2019-12-07 07:53 | disposition left against medical advice (07) | DRG 558 ==
LOC: ER 17:39 → 5 NORTH 12-07 03:00
PROVIDERS: ADMIT Family Medicine; ATTEND Family Medicine
DX: M62.82 Rhabdomyolysis (principal); F19.10 Other psychoactive substance abuse, uncomplicated; F16.10 Hallucinogen abuse, uncomplicated; E11.9 Type 2 diabetes mellitus without complications; E78.5 Hyperlipidemia, unspecified; I10 Essential (primary) hypertension; Z53.29 Procedure and treatment not carried out because of patient's decision for other reasons; N28.9 Disorder of kidney and ureter, unspecified; Z82.49 Family history of ischemic heart disease and other diseases of the circulatory system; Z87.891 Personal history of nicotine dependence; Z88.2 Allergy status to sulfonamides; Z79.899 Other long term (current) drug therapy
CPT/HCPCS: 36415; 70450; 71045; 80048; 80053; 80307; 80329; 81001; 82140; 82550; 82553; 83605; 83735; 84484; 85025; 85610; 85730; 90471; 90715; 93005; 96361; 96372; 96374; 96375; 99285; G0480; J1630; J2060; J2250; J3486; J7030; G0378

== ENCOUNTER 2020-09-08 17:59 | Emergency (ER) | payer SELFPAY ==
[~2020-09-08] VITALS: Ht 172.7 cm; Wt 90.0 kg
[~2020-09-08 17:59] MED LIST: [UNRECOGNIZED DRUG - REMARK]
[2020-09-08] MEDS ORDERED: IV NORMAL SALINE 1000ML BAG 1,000 ML IV ONE (18:30)
[2020-09-08] MEDS ORDERED: NEOMY/BACITR/POLYMYXIN OINT PACKET. TP ONE (18:45)
[2020-09-08] MEDS ORDERED: ZIPRASIDONE IM 20 MG VIAL. IM ONE (18:45)
[2020-09-08 18:57] LABS: BASO # 0.1 x10^3/uL (0.0-0.2); BASO % 1 % (0-3); EOS # 0.2 x10^3/uL (0.0-0.7); EOS % 3 % (0-3); HEMATOCRIT 40.7 % (39.0-53.0); HEMOGLOBIN 14.4 g/dL (13.0-17.5); LYMPH # 2.8 x10^3/uL (1.0-4.8); LYMPH % 35 % (24-48); MEAN CORPUSCULAR HEMOGLOBIN 30 pg (25-35); MEAN CORPUSCULAR HGB CONC 35 g/dL (31-37); MEAN CORPUSCULAR VOLUME 85 fL (79-100); MONO # 0.7 x10^3/uL (0.0-1.1); MONO % 9 % (0-9); NEUT # 4.1 x10^3/uL (1.8-7.7); NEUT % 53 % (31-73); PLATELET COUNT 379 x10^3/uL (140-400); RED BLOOD COUNT 4.78 x10^6/uL (4.30-5.70); RED CELL DISTRIBUTION WIDTH 13.9 % (11.5-14.5); WHITE BLOOD COUNT 7.9 x10^3/uL (4.0-11.0)
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
[2020-09-08 19:09] LABS: CALCIUM 9.2 mg/dL (8.5-10.1); CREATININE 1.6 mg/dL (0.7-1.3); GFR 57.9; POTASSIUM 3.4 mmol/L (3.5-5.1)
[2020-09-08 19:15] LABS: ALBUMIN 4.4 g/dL (3.4-5.0); ALBUMIN/GLOBULIN RATIO 1.2 (1.0-1.7); MAGNESIUM 2.3 mg/dL (1.8-2.4); TOTAL BILIRUBIN 0.5 mg/dL (0.2-1.0); TOTAL PROTEIN 8.1 g/dL (6.4-8.2)
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
--- NOTE | 2020-09-08 20:13 | EKG ---
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
[2020-09-08] MEDS ORDERED: fentaNYL PF VIAL 100 MCG/2 ML VIAL IVP ONE (20:30)
[2020-09-08] MEDS ORDERED: ETOMIDATE 20 MG/10 ML VIAL. IV ONE (20:30)
[2020-09-08 22:11] VITALS: BP 168/114
[2020-09-08 23:05] VITALS: BP 174/94
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
[2020-09-08] MEDS ORDERED: ORPH100T PO (23:34)
== END 2020-09-08 23:38 | disposition home or self-care (01) ==
LOC: ER 17:59
DX: S43.005A Unspecified dislocation of left shoulder joint, initial encounter (principal); F10.129 Alcohol abuse with intoxication, unspecified; Y90.0 Blood alcohol level of less than 20 mg/100 ml; R07.89 Other chest pain; R41.82 Altered mental status, unspecified; M54.2 Cervicalgia; M79.642 Pain in left hand; Z88.2 Allergy status to sulfonamides; V49.49XA Driver injured in collision with other motor vehicles in traffic accident, initial encounter; Y93.89 Activity, other specified; Y92.488 Other paved roadways as the place of occurrence of the external cause; Y99.8 Other external cause status
CPT/HCPCS: 23650; 36415; 70450; 71045; 72125; 73030; 73130; 80053; 83735; 85025; 93005; 96361; 96374; 99285; G0480; J3010; J3490; J7030